=== PATIENT | female | born 1960 | race Caucasian/White ===

== ENCOUNTER → 2024-07-09 09:12 | Outpatient (REF) | payer OTHER, SELFPAY | LOC: RAD 09:12 | PROVIDERS: ATTENDING PHYSICIAN Internal Medicine Cardiovascular Disease; FAMILY PHYSICIAN Internal Medicine | DX: E78.5 Hyperlipidemia, unspecified (principal); Z92.3 Personal history of irradiation; I48.0 Paroxysmal atrial fibrillation; Z85.3 Personal history of malignant neoplasm of breast | CPT/HCPCS: 75571; 93306 ==

== ENCOUNTER → 2024-10-22 08:15 | Outpatient (REF) | payer OTHER, SELFPAY | LOC: HWRAD 08:15 | PROVIDERS: ATTENDING PHYSICIAN Internal Medicine | DX: R30.0 Dysuria (principal); R10.30 Lower abdominal pain, unspecified; R10.2 Pelvic and perineal pain; R10.9 Unspecified abdominal pain | CPT/HCPCS: 76700; 76770; 76856 ==